=== PATIENT | male | born 1985 | race Caucasian/White ===

== ENCOUNTER 2017-07-25 21:21 | Observation (INO) | payer MEDICAID ==
--- NOTE | 2017-07-25 21:31 | EDPHY ---
H & P Stated Complaint: c/o numbness starting in R foot spreading to RLE, then R thorax, then face Source: Patient Exam Limitations: No limitations - Medical/Surgical History Hx Asthma: No Hx Chronic Respiratory Disease: No Hx Diabetes: Yes Hx Cardiac Disease: No Hx Renal Disease: No Hx Cirrhosis: No Hx Alcoholism: No Hx HIV/AIDS: No Hx Splenectomy or Spleen Trauma: No Other PMH: dm 1 - Social History Smoking Status: Never smoked Time Seen by Provider: 07/25/17 21:31 HPI/ROS: CHIEF COMPLAINT: Right-sided paresthesias, confusion HISTORY OF PRESENT ILLNESS: The patient is insulin-dependent diabetic male presents to the ED with a ascending paresthesias the began in his right foot in progressed upward along his right thorax arm and face. The symptoms resolved however he has felt confused after the event. He denies any acute weakness. He denies any history of fall or trauma. He denies neck pain or cervical manipulation. The patient reports his blood sugar was 85 during the incident. Patient denies any history of headache. He has no history of migraine or a typical migraine syndrome. REVIEW OF SYSTEMS: A comprehensive 10 point review of systems is otherwise negative aside from elements mentioned in the history of present illness. (Dre Arauz) - Physical Exam Exam: General Appearance: Alert, no distress Eyes: Pupils equal and round no pallor or injection ENT, Mouth: Mucous membranes moist Respiratory: There are no retractions, lungs are clear to auscultation Cardiovascular: Regular rate and rhythm Gastrointestinal: Abdomen is soft and nontender, no masses, bowel sounds normal Neurological: A&O, normal motor function, normal sensory exam, normal cranial nerves, NIH stroke scale 0 Skin: Warm and dry, no rashes Musculoskeletal: Neck is supple nontender Extremities: symmetrical, full range of motion (Dre Arauz) Constitutional: Initial Vital Signs Temperature (C) 36.8 C 07/25/17 21:24 Heart Rate 86 07/25/17 21:24 Respiratory Rate 16 07/25/17 21:24 Blood Pressure 154/92 H 07/25/17 21:24 O2 Sat (%) 99 07/25/17 21:24 O2 Delivery Mode Room Air Allergies/Adverse Reactions: No Known Allergies Allergy (Unverified 07/25/17 21:28) Home Medications: Medication Instructions Recorded Lantus 07/25/17 novoLOG 07/25/17 Medical Decision Making - Diagnostics Imaging Results: Imaging Impressions Brain MRI 07/25/17 21:38 Impression: Normal MRI of the brain without contrast. Findings and recommendations discussed with Emergency Department physician, Dr. Alex Watt at 22:43 hour, 07/25/2017. Final report concurs with initial preliminary interpretation. Head CTA 07/25/17 23:24 Impression: 1. Normal CTA of the carotids and vertebral arteries. 2. No flow-limiting stenosis, occlusion, dissection, or carotid atherosclerotic disease. Measurement of carotid stenosis is based on the residual internal carotid diameter with [place] Symptomatic Carotid Endarterectomy Trial (NASCET) based stenosis levels. CT Angiogram of the Brain Clinical Indications: Expressive aphasia Technique: CT angiogram of the brain and neck was performed with the uneventful intravenous administration of 80 mL Isovue-370 contrast. Multiplanar reconstructions including 3D reconstructions performed and evaluated on [employer] workstation in order to better evaluate the [place] vessels. Images were manipulated by the radiologist at the computer workstation. Dose reduction techniques were utilized. Findings: Major vessels of the [place] are adequately displayed, demonstrating no evidence of aneurysm, vascular malformation, flow-limiting stenosis, or occlusion. Bilateral cavernous internal carotid arteries and vertebrobasilar system demonstrates no evidence of flow-limiting stenosis, aneurysm, occlusion, or dissection. Superior sagittal sinus, transverse sinuses , and major veins demonstrate no evidence of intraluminal thrombi. Impression: Negative CT angiogram of the brain. Findings and recommendations discussed with Emergency Department physician, Alex Watt MD at 23:45 hour, 07/25/2017. Final report concurs with initial preliminary interpretation. Neck CTA 07/25/17 23:24 Impression: 1. Normal CTA of the carotids and vertebral arteries. 2. No flow-limiting stenosis, occlusion, dissection, or carotid atherosclerotic disease. Measurement of carotid stenosis is based on the residual internal carotid diameter with [place] Symptomatic Carotid Endarterectomy Trial (NASCET) based stenosis levels. CT Angiogram of the Brain Clinical Indications: Expressive aphasia Technique: CT angiogram of the brain and neck was performed with the uneventful intravenous administration of 80 mL Isovue-370 contrast. Multiplanar reconstructions including 3D reconstructions performed and evaluated on Vitrea workstation in order to better evaluate the [place] vessels. Images were manipulated by the radiologist at the computer workstation. Dose reduction techniques were utilized. Findings: Major vessels of the [place] are adequately displayed, demonstrating no evidence of aneurysm, vascular malformation, flow-limiting stenosis, or occlusion. Bilateral cavernous internal carotid arteries and vertebrobasilar system demonstrates no evidence of flow-limiting stenosis, aneurysm, occlusion, or dissection. Superior sagittal sinus, transverse sinuses , and major veins demonstrate no evidence of intraluminal thrombi. Impression: Negative CT angiogram of the brain. Findings and recommendations discussed with Emergency Department physician, Alex Watt MD at 23:45 hour, 07/25/2017. Final report concurs with initial preliminary interpretation. ED Course/Re-evaluation: The patient presents to the ED after an episode of right-sided paresthesias involving his face, arm and leg. The patient had no associated weakness. The patient feels he has some ongoing subjective dysarthria which I do not appreciate. The patient was noted to be afebrile and in no acute distress. He has an NIH stroke scale is 0. The patient is not having symptoms of a migraine. The patient has had no history of fall or trauma. There is nothing to suggest carotid disease based upon history of physical exam. Patient will undergo a brain MRI without contrast to evaluate for evidence of unexpected ischemia versus an other ENERGY CONSERVATION ENGINEER process. The patient will be turned over to Dr. Watt pending his MRI. (Dre Arauz) Differential Diagnosis: Differential diagnosis considered includes stroke, TIA, hypoglycemia, migraine variant, ENERGY CONSERVATION ENGINEER tumor (Dre Arauz) Other Provider: 22:[address] Arauz pending MRI of the brain. 22:20 patient MRI brain is negative per Dr. Devlin. Went to discuss this with the patient in he now has a clear expressive aphasia. Repeat blood sugar now is 113. 22:50 discussed the patient with Dr. Arsenio Ontiveros, [facility]. He agrees that given the normal MRI in the changing symptoms this is not likely to be acute ischemia. Symptoms likely secondary to possibly atypical migraine. He will evaluate the patient be telemedicine. 23:20 Dr. Ontiveros is completed his telemedicine evaluation. I was at the bedside throughout. Patient has a worsening expressive aphasia but no other neurologic findings at this time. Dr. Ontiveros is still of the opinion that this is not acute ischemia given the normal MRI of the brain. He is recommending CT angiogram of the head and neck to rule out any potential for unlikely vascular process. 23:50 CT angiogram of the head and neck are normal. I have discussed again with Dr. Ontiveros. He believes that given normal CT angios and normal MRI that this does not represent stroke. Other differential diagnosis causes include migraine variant, focal seizure, or encephalitis. I have re-evaluated the patient and his symptoms are unchanged. Dr. Ontiveros is recommending at [place] for observation overnight. If his symptoms clear by morning he can probably go home. If not he would recommend EEG and possible spinal tap. He does not feel that spinal tap is necessary at this time and I agree. I have paged the hospitalist for admission. Repeat blood sugar now is 121. (Alex Watt) - Data Points Laboratory Results: Laboratory Results 07/25/17 21:56 07/25/17 21:56 07/25/17 07/25/17 07/25/17 22:51 21:56 21:56 WBC 8.33 10^3/uL 10^3/uL (3.80-9.50) RBC 5.67 10^6/uL 10^6/uL (4.40-6.38) Hgb 15.6 g/dL g/dL (13.7-17.5) Hct 44.8 % % (40.0-51.0) MCV 79.0 fL L fL (81.5-99.8) MCH 27.5 pg L pg (27.9-34.1) MCHC 34.8 g/dL g/dL (32.4-36.7) RDW 13.2 % % (11.5-15.2) Plt Count 236 10^3/uL 10^3/uL (150-400) MPV 11.1 fL fL (8.7-11.7) Neut % (Auto) 36.1 % L % (39.3-74.2) Lymph % (Auto) 54.3 % H % (15.0-45.0) [place] % (Auto) 6.4 % % (4.5-13.0) Eos % (Auto) 2.4 % % (0.6-7.6) Baso % (Auto) 0.7 % % (0.3-1.7) Nucleat RBC Rel Count 0.0 % % (0.0-0.2) Absolute Neuts (auto) 3.01 10^3/uL 10^3/uL (1.70-6.50) Absolute Lymphs (auto) 4.52 10^3/uL H 10^3/uL (1.00-3.00) Absolute Monos (auto) 0.53 10^3/uL 10^3/uL (0.30-0.80) Absolute Eos (auto) 0.20 10^3/uL 10^3/uL (0.03-0.40) Absolute Basos (auto) 0.06 10^3/uL 10^3/uL (0.02-0.10) Absolute Nucleated RBC 0.00 10^3/uL 10^3/uL (0-0.01) Immature Gran % 0.1 % % (0.0-1.1) Immature Gran # 0.01 10^3/uL 10^3/uL (0.00-0.10) Sodium 141 mEq/L mEq/L (135-145) Potassium 3.6 mEq/L mEq/L (3.3-5.0) Chloride 102 mEq/L mEq/L (97-110) Carbon Dioxide 23 mEq/l mEq/l (22-31) Anion Gap 16 mEq/L mEq/L (8-16) BUN 10 mg/dL mg/dL (7-23) Creatinine 0.7 mg/dL mg/dL (0.7-1.3) Estimated GFR > 60 Glucose 109 mg/dL H mg/dL (70-100) POC Glucose 113 mg/dL H mg/dL (70-100) Calcium 9.3 mg/dL mg/dL (8.5-10.4) Medications Given: Discontinued Medications Sodium Chloride (Ns) 1,000 mls @ 0 mls/hr IV EDNOW ONE; Wide Open PRN Reason: Protocol Stop: 07/25/17 21:39 Last Admin: 07/25/17 21:52 Dose: 1,000 mls Point of Care Test Results: Chemistry 07/25/17 22:51 POC Glucose 113 mg/dL H mg/dL (70-100) Departure - Departure Disposition: [facility] Inpatient Acute Clinical Impression: Expressive aphasia Condition: Fair Referrals: NONE *PRIMARY CARE P,. [Primary Care Provider] - As per Instructions
[2017-07-25] MEDS ORDERED: NS 1,000 ML IV ONE (21:38)
[2017-07-25 22:09] LABS: PLATELET COUNT 236 10^3/uL (150-400)
[2017-07-25] MEDS ORDERED: IOPAMIDOL (ISOVUE 370) 100 ML BTL IV ONE (23:26)
[2017-07-26] MEDS ORDERED: ACETAMINOPHEN 325 MG TAB PO PRN (00:03)
[2017-07-26] MEDS ORDERED: ONDANSETRON 4 MG/2 ML VIAL IVP PRN (00:03)
[2017-07-26] MEDS ORDERED: ONDANSETRON DISINTEGRATING 4 MG TAB PO PRN (00:03)
[2017-07-26] MEDS ORDERED: D50W 25 GM/50 ML SYR IVP PRN ×2 (00:04→08:25)
[2017-07-26] MEDS ORDERED: INSULIN PUMP, PATIENT OWN 1 EA MISC SCH (00:15)
--- NOTE | 2017-07-26 00:35 | PDGENHP ---
History and Physical - Chief Complaint Numbness - History of Present Illness 31 yo M w/ T1DM p/w complaints of R sided numbness. History obtained mostly from roommate who is a former EMT as patient himself is having difficulty communicating effectively. The patient called his roommate this evening to tell him he was having difficulty operating the gas pedal in his car due to R foot numbness. After arriving home, he complained of R hand and R facial numbness as well. His roommate states he noted a mild facial droop and slurred speech, so they came to the ER. In the ER MRI brain and CTA Head/neck have been unremarkable. His blood glucose has been normal throughout. At this time he continues to display subtle expressive and receptive aphasia. He displays no dysarthria or other clear neurologic symptoms. History Information - Allergies/Home Medication List Allergies/Adverse Reactions: No Known Allergies Allergy (Unverified 07/25/17 21:28) Home Medications: Lantus 07/25/17 [Last Taken Unknown] novoLOG 07/25/17 [Last Taken Unknown] I have personally reviewed and updated: family history, medical history - Past Medical History diabetes type 1 - Surgical History Reports: no pertinent surgical hx - Family History Additional family history: Asked, denies - Social History Smoking Status: Never smoked Review of Systems Review of Systems: ROS: 10pt was reviewed & negative except for what was stated in HPI & below Physical Exam Physical Exam: Temp Pulse Resp BP Pulse Ox 37.1 C 90 18 142/88 H 95 07/26/17 00:00 07/26/17 00:00 07/26/17 00:00 07/26/17 00:00 07/26/17 00:00 Constitutional: no apparent distress, not in pain Eyes: PERRL, EOMI Ears, Nose, Mouth, Throat: moist mucous membranes, no oral mucosal ulcers Cardiovascular: regular rate and rhythym, no murmur, rub, or gallop Respiratory: no respiratory distress, clear to auscultation Gastrointestinal: normoactive bowel sounds, soft, non-tender abdomen Skin: warm, normal color Musculoskeletal: full muscle strength, no muscle tenderness Neurologic: AAOx3, CN II-XII Intact, other (Inconsistently following commands, difficulty communicating verbally) Psychiatric: interacting appropriately, not anxious Lab Data & Imaging Review 07/25/17 21:56 07/25/17 21:56 WBC 8.33 10^3/uL (3.80-9.50) 07/25/17 21:56 RBC 5.67 10^6/uL (4.40-6.38) 07/25/17 21:56 Hgb 15.6 g/dL (13.7-17.5) 07/25/17 21:56 Hct 44.8 % (40.0-51.0) 07/25/17 21:56 MCV 79.0 fL (81.5-99.8) L 07/25/17 21:56 MCH 27.5 pg (27.9-34.1) L 07/25/17 21:56 MCHC 34.8 g/dL (32.4-36.7) 07/25/17 21:56 RDW 13.2 % (11.5-15.2) 07/25/17 21:56 Plt Count 236 10^3/uL (150-400) 07/25/17 21:56 MPV 11.1 fL (8.7-11.7) 07/25/17 21:56 Neut % (Auto) 36.1 % (39.3-74.2) L 07/25/17 21:56 Lymph % (Auto) 54.3 % (15.0-45.0) H 07/25/17 21:56 [place] % (Auto) 6.4 % (4.5-13.0) 07/25/17 21:56 Eos % (Auto) 2.4 % (0.6-7.6) 07/25/17 21:56 Baso % (Auto) 0.7 % (0.3-1.7) 07/25/17 21:56 Nucleat RBC Rel Count 0.0 % (0.0-0.2) 07/25/17 21:56 Absolute Neuts (auto) 3.01 10^3/uL (1.70-6.50) 07/25/17 21:56 Absolute Lymphs (auto) 4.52 10^3/uL (1.00-3.00) H 07/25/17 21:56 Absolute Monos (auto) 0.53 10^3/uL (0.30-0.80) 07/25/17 21:56 Absolute Eos (auto) 0.20 10^3/uL (0.03-0.40) 07/25/17 21:56 Absolute Basos (auto) 0.06 10^3/uL (0.02-0.10) 07/25/17 21:56 Absolute Nucleated RBC 0.00 10^3/uL (0-0.01) 07/25/17 21:56 Immature Gran % 0.1 % (0.0-1.1) 07/25/17 21:56 Immature Gran # 0.01 10^3/uL (0.00-0.10) 07/25/17 21:56 Sodium 141 mEq/L (135-145) 07/25/17 21:56 Potassium 3.6 mEq/L (3.3-5.0) 07/25/17 21:56 Chloride 102 mEq/L (97-110) 07/25/17 21:56 Carbon Dioxide 23 mEq/l (22-31) 07/25/17 21:56 Anion Gap 16 mEq/L (8-16) 07/25/17 21:56 BUN 10 mg/dL (7-23) 07/25/17 21:56 Creatinine 0.7 mg/dL (0.7-1.3) 07/25/17 21:56 Estimated GFR > 60 07/25/17 21:56 Glucose 109 mg/dL (70-100) H 07/25/17 21:56 POC Glucose 121 mg/dL (70-100) H 07/25/17 23:58 Calcium 9.3 mg/dL (8.5-10.4) 07/25/17 21:56 Imaging Review: Imaging Impressions Brain MRI 07/25/17 21:38 Impression: Normal MRI of the brain without contrast. Findings and recommendations discussed with Emergency Department physician, Dr. Alex Watt at 22:43 hour, 07/25/2017. Final report concurs with initial preliminary interpretation. Head CTA 07/25/17 23:24 Impression: 1. Normal CTA of the carotids and vertebral arteries. 2. No flow-limiting stenosis, occlusion, dissection, or carotid atherosclerotic disease. Measurement of carotid stenosis is based on the residual internal carotid diameter with [place] Symptomatic Carotid Endarterectomy Trial (NASCET) based stenosis levels. CT Angiogram of the Brain Clinical Indications: Expressive aphasia Technique: CT angiogram of the brain and neck was performed with the uneventful intravenous administration of 80 mL Isovue-370 contrast. Multiplanar reconstructions including 3D reconstructions performed and evaluated on [employer] workstation in order to better evaluate the [place] vessels. Images were manipulated by the radiologist at the computer workstation. Dose reduction techniques were utilized. Findings: Major vessels of the [place] are adequately displayed, demonstrating no evidence of aneurysm, vascular malformation, flow-limiting stenosis, or occlusion. Bilateral cavernous internal carotid arteries and vertebrobasilar system demonstrates no evidence of flow-limiting stenosis, aneurysm, occlusion, or dissection. Superior sagittal sinus, transverse sinuses , and major veins demonstrate no evidence of intraluminal thrombi. Impression: Negative CT angiogram of the brain. Findings and recommendations discussed with Emergency Department physician, Alex Watt MD at 23:45 hour, 07/25/2017. Final report concurs with initial preliminary interpretation. Neck CTA 07/25/17 23:24 Impression: 1. Normal CTA of the carotids and vertebral arteries. 2. No flow-limiting stenosis, occlusion, dissection, or carotid atherosclerotic disease. Measurement of carotid stenosis is based on the residual internal carotid diameter with [place] Symptomatic Carotid Endarterectomy Trial (NASCET) based stenosis levels. CT Angiogram of the Brain Clinical Indications: Expressive aphasia Technique: CT angiogram of the brain and neck was performed with the uneventful intravenous administration of 80 mL Isovue-370 contrast. Multiplanar reconstructions including 3D reconstructions performed and evaluated on Vitrea workstation in order to better evaluate the [place] vessels. Images were manipulated by the radiologist at the computer workstation. Dose reduction techniques were utilized. Findings: Major vessels of the [place] are adequately displayed, demonstrating no evidence of aneurysm, vascular malformation, flow-limiting stenosis, or occlusion. Bilateral cavernous internal carotid arteries and vertebrobasilar system demonstrates no evidence of flow-limiting stenosis, aneurysm, occlusion, or dissection. Superior sagittal sinus, transverse sinuses , and major veins demonstrate no evidence of intraluminal thrombi. Impression: Negative CT angiogram of the brain. Findings and recommendations discussed with Emergency Department physician, Alex Watt MD at 23:45 hour, 07/25/2017. Final report concurs with initial preliminary interpretation. Assessment & Plan Assessment: 31 yo M w/ T1DM p/w R sided numbness and aphasia. Plan: 1. Aphasia - Patient displaying mild expressive and receptive aphasia at this time; no dysarthria evident. He reports R sided numbness earlier in the evening but this has now resolved. MRI brain and CTA Head/neck were unremarkable, making stroke very unlikely. He does have mild headache currently so complex migraine is a possibility. He has no infectious signs or symptoms at this time. - Admit for observation - Neurology consult placed - If not improving conservatively, may benefit from LP and EEG - Case discussed with Dr. Watt 2. T1DM - Patient well controlled on his own insulin pump, I will continue this for now and monitor BG closely. Diet - Regular Code - Full Ppx - Low risk Dispo - Admit under observation status
[2017-07-26 04:45] LABS: PLATELET COUNT 237 10^3/uL (150-400)
[2017-07-26 04:54] LABS: CREATINE KINASE 44 IU/L (0-224)
[2017-07-26 08:03] VITALS: BP 122/77
--- NOTE | 2017-07-26 08:15 | CPEKG ---
Heart Rate: 98 RR Interval: 612 P-R Interval: 176 QRSD Interval: 100 QT Interval: 344 QTC Interval: 440 P [place]: 63 QRS [place]: 54 T Wave [place]: 23 EKG Severity - NORMAL ECG - EKG Impression: SINUS RHYTHM EKG Impression: ABNORMAL ANTERIOR ST CONTOUR Electronically Signed By: Quin Ames 26-Jul-2017 20:28:15
--- NOTE | 2017-07-26 08:26 | HOSPPROG ---
Hospitalist Progress Note Assessment/Plan: Wilmer is a 31 y/o male who presented to the ER with right sided numbness. Initial concern was a stroke. Today is my first encounter w the patient, chart reviewed. *Aphasia -cont to have mild expressive and receptive aphasia/ ? migraines -imaging shows nothing acute -has an elevated WBC count, ? if he needs an LP -will discuss w neurology *Type 1 DM -has a pump in place, but concerned he is unable to use it safely -will order sliding scale *plan: will check ua to r/o any infection, suspect he has a migraine. Subjective: Wilmer has no complaints, describes the symtoms coming on acutely. Objective: Vital Signs Temp Pulse Resp BP Pulse Ox 37.2 C 109 H 15 122/77 H 99 07/26/17 08:01 07/26/17 08:01 07/26/17 08:01 07/26/17 08:01 07/26/17 08:01 Laboratory Results 07/26/17 04:25 07/26/17 04:25 - Physical Exam Constitutional: no apparent distress, appears nourished, not in pain Eyes: PERRL Ears, Nose, Mouth, Throat: hearing normal Cardiovascular: regular rate and rhythym Respiratory: no respiratory distress Skin: warm Musculoskeletal: full muscle strength Neurologic: AAOx3, sensation intact bilaterally, CN II-XII Intact, other (at times has diff finding a word but then this quickly resolves), No weakness, No facial droop Psychiatric: interacting appropriately, not anxious, not encephalopathic, thought process linear ICD10 Worksheet Patient Problems: Problems Problem Status Onset Expressive aphasia Acute
[2017-07-26] MEDS ORDERED: INSULIN LISPRO 100 UNIT/ML SC SCH (08:45)
--- NOTE | 2017-07-26 11:33 | GCON ---
[f rep st] CONSULTATION NEUROLOGY CONSULTATION CHIEF COMPLAINT: Multiple neurologic symptoms. HISTORY OF PRESENT ILLNESS: The patient is a very pleasant 31-year-old gentleman doing a second undergraduate degree in [employer]. He has no recent exposures. No new medications, either prescribed or recreational. He does have a family history of migraines in his mother. He does not recall any migraine history in himself. The patient came to the emergency department yesterday evening due to right-sided numbness in his trunk and lower extremity that was transient and resolved. He also was found to be confused in the ED and was admitted for further evaluation. He does have insulin-dependent diabetes for the last 21 years or so. The right-sided numbness symptoms came on over 15-30 minutes in a marching pattern in terms of topography. Overnight, the patient developed a throbbing headache with some mild nausea. He states now all of these symptoms have resolved this morning. The patient had an MRI brain, which was normal. No stroke or mass lesions. CT of the head and neck also was essentially normal. He had a telemedicine by [place] evaluation who agreed or felt this was not an acute neurovascular syndrome and felt this may be a migraine variant. He has had no seizures overnight in terms of convulsive events. No epilepsy risk factors. He has had no fever, chills, rash, neck stiffness, or any infectious symptoms to suggest meningitis or encephalitis. REVIEW OF SYSTEMS: 10-point review of system was done, only pertinent to the HPI. PAST MEDICAL/SOCIAL/FAMILY HISTORY/HOME MEDICATIONS/ALLERGIES: See Dr. Cortes's H and P. PHYSICAL EXAMINATION: VITAL SIGNS: Temperature 36.6, heart rate 78, respirations 16, blood pressure 122/77. GENERAL: Patient is awake and alert, very pleasant. NEUROLOGIC: On naming, he got 4/5 correct. When I showed him a pen, he called it a "PING, a ping." This was only language exam error. He follows commands 5/5 and repeated 5/5. Cranial nerve exam was normal 2 through 7 and 11, and 12. Motor exam was normal in all extremities in terms of strength , tone, and reflexes. Sensory exam was normal to light touch everywhere in all extremities and in his face. Coordination was normal all extremities. IMPRESSION/PLAN: 1. Query complex migraine The patient is presenting with a constellation of right-sided numbness, language symptoms, followed by a mild throbbing headache, and nausea with a marching temporal profile suggestive of a migrainous physiology. We discussed at length. I am reassured by his negative MRI brain and angiography of the head and neck in terms of an acute neurovascular process. He is essentially resolved now based on last night's presentation to my exam this morning. He has no signs or symptoms of central nervous infection at this point. He will likely discharge home later today. I have instructed him to come back to the emergency department for any recurrence of the previous symptoms or new neurologic symptoms. I also asked him to come back to the emergency department if he has any fever, sweats, chills, rash, or rigors. He is agreeable to all the above. He will follow up with me in around 48 hours at 11 a.m. on July 28, 2017, to ensure that he is doing well, and at that point, we can decide if we want to pursue any other testing based on his interim history. No further recommendations now. We will continue to follow this patient in the hospital as needed. Please do not hesitate to call if there are any changes in his neurologic status or questions. Thank you for the consultation. Seventy total minutes floor time today reviewing records, imaging, laboratory studies, counseling the patient and coordination of care. /[id number]/MODL MTDD
--- NOTE | 2017-07-26 12:05 | ASMTCMCOM ---
CM Note CM Note Notes: Pt medically stable for d/c, no CM d/c needs identified. Date Signed: 07/26/2017 12:04 PM Electronically Signed By:LORA Barker
--- NOTE | 2017-07-26 16:18 | GDS ---
[f rep st] DISCHARGE SUMMARY DISCHARGE DIAGNOSES: 1. Aphasia, expressive and receptive, most likely secondary to a migraine. 2. Type 1 diabetes. HISTORY OF PRESENT ILLNESS/HOSPITAL COURSE: The patient is a 31-year-old [employer] student. He is getting a n undergraduate degree in [employer]. He has a family history of migraines in his mother. He presen taylor to the emergency room due to right-sided numbness in his trunk and lower extremity that was trans ient, resolved. He also was found to be confused in the emergency department. He is also an insulin-d ependent diabetic for the past 21 years. He had an MRI of the brain that was normal. He had no stroke or mass lesions. A CT of the head and ne ck was essentially normal. He was evaluated by telemedicine by Derrell Warner, who agreed that this is not an acute neurovascular syndrome, felt it was a migraine variant. He was admitted and seen and evaluat ed by Dr. Shaheen Rausch. He commented that this was most likely a query complex migraine. He was discharged home. I reviewed with him, if he has any fever, sweats or chills to return to the e mergency room. He will follow up with Dr. Rausch in 48 hours on July 28 to ensure he is doing well. DISCHARGE CONDITION: Stable. Blood pressure 122/77, heart rate of 109, respiratory rate 15, O2 sats on room air 99%, temperature is 37.2 Celsius. DISCHARGE MEDICATIONS: Please see the EMR. DISCHARGE INSTRUCTIONS: 1. To follow up with Dr. Rausch this week. 2. If he develops any fever, chills, or sweats, to return to the ER. /[id number]/MODL
== END 2017-07-26 11:34 | disposition home or self-care (01) ==
LOC: F3N 07-26 01:08
PROVIDERS: ADMIT Student in an Organized Health Care Education/Training Program; ATTEND Hospitalist
DX: R47.01 Aphasia (principal); R20.2 Paresthesia of skin; R29.701 NIHSS score 1; E10.9 Type 1 diabetes mellitus without complications; E86.9 Volume depletion, unspecified; R51 Headache; Z79.4 Long term (current) use of insulin
CPT/HCPCS: 70496; 70498; 70551; 93005; G0378; 80305; J1815; J2405; Q9967

== ENCOUNTER → 2017-08-15 | Outpatient (CLI) | payer MEDICAID, OTHER ==
--- NOTE | 2017-08-15 14:03 | CPEEG ---
[f rep st] ELECTROENCEPHALOGRAM DATE OF STUDY: 08/15/2017 INTERPRETATION: This 4-hour video EEG recording is normal. There were no potentially epileptogenic abnormalities present in the awake or sleep recordings. During the video EEG monitoring session, the patient did not have any clinical events. REPORT: This 4-hour video EEG contains 10-11 Hz alpha activity over the posterior head regions. The background activity was normal and symmetric. There was no abnormal activation at rest, during hype rventilation or photic stimulation. The patient became drowsy and fell into sustained sleep during t he study. There was no abnormal activation during drowsiness, sleep, or during times of arousal. Th e patient did not have any clinical events during the video EEG monitoring session. /[id number]/MODL
== END ==
LOC: FCPNEURO 07:30
PROVIDERS: ATTEND Psychiatry & Neurology Neurology
DX: R47.01 Aphasia (principal); G43.909 Migraine, unspecified, not intractable, without status migrainosus